=== PATIENT | female | born 2000 | race African-American/Black ===

== ENCOUNTER 2019-03-19 00:38 | Emergency (ER) | payer MEDICAID ==
--- NOTE | 2019-03-19 02:04 | ER Document Report ---
HPI - HPI Time Seen by Provider: 03/19/19 01:55 Pain Level: 3 Context: Patient is a 19-year-old female that comes to the emergency department for chief complaint of several days of pain in the right side of her chest. She states pain is occasional sharp, most noticeable when she takes a deep breath or makes a movement. She denies trauma, shortness of breath, nausea/vomiting, fever/chills, or any other complaints. She states she recently stopped vaping and reasons to quit smoking as well. She smokes occasional marijuana. She denies recreational drugs otherwise. LMP a few days ago. She denies medical history otherwise. - REPRODUCTIVE LMP: 1 week ago Reproductive: DENIES: : Past Medical History - General Information source: Patient - Social History Smoking Status: Former Smoker Chew tobacco use (# tins/day): Yes Frequency of alcohol use: None Drug Abuse: Marijuana Lives with: Family Family History: Reviewed & Not Pertinent Patient has suicidal ideation: No Patient has homicidal ideation: No Surgical Hx: Negative - Immunizations Immunizations up to date: Yes Hx Diphtheria, Pertussis, Tetanus Vaccination: Yes Vertical Provider Document - CONSTITUTIONAL General Appearance: WD/WN, No Apparent Distress - INFECTION CONTROL TRAVEL OUTSIDE OF THE [place] IN LAST 30 DAYS: No - HEENT HEENT: Atraumatic, Normal ENT Exam, Normocephalic - NECK Neck: Normal Inspection - RESPIRATORY Respiratory: Breath Sounds Normal, No Respiratory Distress, Chest Non-Tender - CARDIOVASCULAR Cardiovascular: Regular Rate, Regular Rhythm - GI/ABDOMEN Gastrointestinal: Abdomen Soft, Abdomen Non-Tender. negative: Abdomen Tender - BACK Back: Normal Inspection - MUSCULOSKELETAL/EXTREMETIES Musculoskeletal/Extremeties: MAEW, FROM, Non-Tender - NEURO Level of Consciousness: Awake, Alert, Appropriate Motor/Sensory: No Motor Deficit, No Sensory Deficit - DERM Integumentary: Warm, Dry, No Rash Course - Re-evaluation Re-evalutation: Patient complaining of sharp right-sided chest pain mainly with a pleuritic component (taking deep breaths), occasionally with movements. She is not in any distress. Clear lungs, soft abdomen, no tachycardia. No fever. No injury. Chest x-ray unremarkable. EKG actually shows multiple areas of ST elevations which could be suggestive of pericarditis. Patient has no murmur, no current complaints. Possible mild pericarditis. I discussed with Dr. Ramirez. He does not recommend laboratory work-up at this time, recommends treatment with indomethacin and close cardiology follow-up with return precautions which were discussed in detail with the patient. Patient states satisfaction agreement with plan. Stable at time of discharge. - Vital Signs Vital signs: Temp Pulse Resp BP Pulse Ox 98.0 F 85 16 110/65 98 03/19/19 00:45 03/19/19 00:45 03/19/19 00:45 03/19/19 00:45 03/19/19 00:45 Discharge - Discharge Clinical Impression: Chest pain Qualifiers: Chest pain type: unspecified Qualified Code(s): R07.9 - Chest pain, unspecified Condition: Stable Disposition: HOME, SELF-CARE Additional Instructions: Your EKG and evaluation are suggestive of pericarditis. As result the recommendation is to take the indomethacin to treat this, please call the listed cardiology referral for close follow-up and additional evaluation including possible echocardiogram. Come back if you worsen including difficulty breathing, severe worsening pain, or any other concerning or worsening symptoms. Prescriptions: Indomethacin [Indocin 50 mg Capsule] 50 mg PO TID #15 capsule Forms: Return to Work Referrals: YENNY GUERRA MD [ACTIVE STAFF] - Follow up tomorrow
--- NOTE | 2019-03-19 02:48 | RADIOLOGY REPORT (SQ) ---
CLINICAL HISTORY: chest/lung pain. quit vaping 1 wk ago COMPARISON: None. TECHNIQUE: XR CHEST 2 VIEWS 03/19/2019 12:00 AM CDT FINDINGS: Cardiac silhouette is normal in size. Lungs are clear without consolidation, atelectasis, mass or edema. There is no pleural effusion. There is no pneumothorax. There are no acute osseous findings. IMPRESSION: Clear lungs.
[2019-03-19] MEDS ORDERED: INDOMETHACIN 50 MG CAPSULE PO ONE (03:46)
[2019-03-19 04:22] VITALS: BP 126/74
--- NOTE | 2019-03-19 11:41 | EKG REPORT ---
SEVERITY:- ABNORMAL ECG - SINUS ARRHYTHMIA, RATE [id number] : Confirmed by: Eddie Ghotra 19-Mar-2019 11:41:00
== END 2019-03-19 04:19 | disposition home or self-care (01) ==
LOC: ER 00:38
DX: R07.9 Chest pain, unspecified (principal); Z87.891 Personal history of nicotine dependence
CPT/HCPCS: 93005; 99285; 71046; 93010; J3490

== ENCOUNTER 2019-05-01 12:04 | Emergency (ER) | payer SELFPAY ==
--- NOTE | 2019-05-01 12:22 | ER Document Report ---
ED Medical Screen (RME) - General Chief Complaint: Upper Abdominal Pain Stated Complaint: ABDOMINAL PAIN Time Seen by Provider: 05/01/19 12:18 Primary Care Provider: CARINA VIRAMONTES MD [Primary Care Provider] - Follow up as needed Mode of Arrival: Ambulatory Information source: Patient Notes: 19-year-old female presented to ED for complaint of right upper abdominal pain for about 20 to 30 minutes. She states she has been nausea and vomiting. She was vomiting in the emergency room. She is alert oriented respirations regular nonlabored. She states her last menstrual period was about a month ago. She states she does not have a history of kidney stones and has her gallbladder still. Patient smokes 1 black miles a day no alcohol no drugs. Denies any past medical history. I have greeted and performed a rapid initial assessment of this patient. A comprehensive ED assessment and evaluation of the patient, analysis of test results and completion of medical decision making process will be conducted by an additional ED providers. TRAVEL OUTSIDE OF THE [place] IN LAST 30 DAYS: No Past Medical History - Immunizations Immunizations up to date: Yes Hx Diphtheria, Pertussis, Tetanus Vaccination: Yes Physical Exam - Vital signs Vitals: Temp Pulse Resp BP Pulse Ox 97.4 F 79 24 H 100/71 99 05/01/19 12:04 05/01/19 12:04 05/01/19 12:04 05/01/19 12:04 05/01/19 12:04 Course - Vital Signs Vital signs: Temp Pulse Resp BP Pulse Ox 97.4 F 79 24 H 100/71 99 05/01/19 12:04 05/01/19 12:04 05/01/19 12:04 05/01/19 12:04 05/01/19 12:04 Doctor's Discharge - Discharge Referrals: CARINA VIRAMONTES MD [Primary Care Provider] - Follow up as needed
[2019-05-01 12:49] LABS: ABSOLUTE EOSINOPHILS # (AUTO) 0.2 10^3/uL (0.0-0.6); ABSOLUTE MONOCYTES (AUTO) 0.7 10^3/uL (0.1-1.4); ABSOLUTE NEUT (AUTO) 3.8 10^3/uL (1.7-8.2); BASOPHILS % (AUTO) 0.3 % (0-2); EOSINOPHILS % (AUTO) 2.7 % (0-6); HEMATOCRIT 37.3 % (36.0-47.0); HEMOGLOBIN 13.1 g/dL (12.0-15.5); LYMPHOCYTES % (AUTO) 45.9 % (13-45); MEAN CORPUSCULAR HGB CONC 35.1 g/dL (32.0-36.0); MEAN CORPUSCULAR VOLUME 88 fl (80-97); MONOCYTES % (AUTO) 8.2 % (3-13); PLATELET COUNT 300 10^3/uL (150-450); RED BLOOD COUNT 4.22 10^6/uL (3.72-5.28); RED CELL DISTRIBUTION WIDTH 12.6 % (11.5-14.0); SEGMENTED NEUTROPHILS % (AUTO) 42.9 % (42-78); TOTAL CELLS COUNTED % (AUTO) 100 %; WHITE BLOOD COUNT 8.8 10^3/uL (4.0-10.5)
[2019-05-01 13:06] LABS: ALBUMIN 4.2 g/dL (3.5-5.0); ALKALINE PHOSPHATASE 58 U/L (38-126); ANION GAP 8 (5-19); ASPARTATE AMINO TRANSFERASE 21 U/L (14-36); BILIRUBIN,DIRECT 0.1 mg/dL (0.0-0.4); BILIRUBIN,TOTAL 0.3 mg/dL (0.2-1.3); BLOOD UREA NITROGEN 9 mg/dL (7-20); CALCIUM 9.2 mg/dL (8.4-10.2); CARBON DIOXIDE 24 mmol/L (22-30); CHLORIDE 107 mmol/L (98-107); GLUCOSE 99 mg/dL (75-110); TOTAL PROTEIN 6.9 g/dL (6.3-8.2)
--- NOTE | 2019-05-01 14:13 | RADIOLOGY REPORT (SQ) ---
EXAM DESCRIPTION: U/S ABDOMEN LIMITED W/O DOP COMPLETED DATE/TIME: 05/01/2019 2:01 pm REASON FOR STUDY: Right upper quadrant with nausea and vomiting COMPARISON: None. TECHNIQUE: Dynamic and static grayscale images acquired of the abdomen and recorded on PACS. Additio dmitriy selected color Doppler and spectral images recorded. LIMITATIONS: None. FINDINGS: PANCREAS: No masses. Visualized pancreatic duct normal caliber. LIVER: No masses. Echotexture normal. LIVER VASCULATURE: Normal directional flow of the main portal vein and hepatic veins. GALLBLADDER: No stones. Normal wall thickness. No pericholecystic fluid. ULTRASOUND-DETECTED GOMEZ'S SIGN: Negative. INTRAHEPATIC DUCTS AND COMMON DUCT: CBD and intrahepatic ducts normal caliber. No filling defects. INFERIOR VENA CAVA: Not imaged. AORTA: No aneurysm. RIGHT KIDNEY: Normal size, 10.6 cm. There is an echogenic focus in upper calyx measuring 6 mm. Lik christopher nonobstructing calculus. Renal pelvis is slightly prominent but there is no true hydronephrosis. PERITONEAL AND RIGHT PLEURAL SPACE: No ascites or effusions. OTHER: No other significant findings. IMPRESSION: Right renal calculus. No other significant finding. TECHNICAL DOCUMENTATION: JOB ID: [id number] [email or web address]- All Rights Reserved Reading location - IP/workstation name: [email or web address]
[2019-05-01 14:24] LABS: AMORPHOUS SEDIMENT,URINE TRACE /HPF; APPEARANCE,URINE CLOUDY; BILIRUBIN,URINE NEGATIVE (NEGATIVE); COLOR,URINE AMBER; GLUCOSE, URINE NEGATIVE (NEGATIVE); KETONES,URINE NEGATIVE (NEGATIVE); PROTEIN,URINE NEGATIVE (NEGATIVE); URINE SPECIFIC GRAVITY 1.026; UROBILINOGEN,URINE NEGATIVE mg/dL (<2.0)
[2019-05-01] MEDS ORDERED: TAMSULOSIN HCL 0.4 MG CAP.SR.24H PO ONE (15:13)
--- NOTE | 2019-05-01 15:13 | ER Document Report ---
ED General - General Chief Complaint: Upper Abdominal Pain Stated Complaint: ABDOMINAL PAIN Time Seen by Provider: 05/01/19 12:18 Primary Care Provider: CARINA VIRAMONTES MD [Primary Care Provider] - Follow up in 1 week Mode of Arrival: Ambulatory Information source: Patient Notes: 19-year-old female presents emergency department with complaints of right-sided flank pain with nausea and vomiting. She reports she woke up with the pain. She thought she had to have a bowel movement. She denies pain with void. She reports she immediately got in the car and came to the emergency department upon arrival she started having nausea and vomiting. She denies fever but reports she felt really cold. Denies history of kidney stones. Denies trauma. TRAVEL OUTSIDE OF THE [place] IN LAST 30 DAYS: No - HPI Onset: Just prior to arrival Onset/Duration: Sudden Quality of pain: Achy Associated symptoms: Nausea Exacerbated by: Denies Relieved by: Denies Similar symptoms previously: No Recently seen / treated by doctor: No - Related Data Allergies/Adverse Reactions: No Known Allergies Allergy (Unverified 05/01/19 12:20) Past Medical History - General Information source: Patient - Social History Smoking Status: Current Every Day Smoker Cigarette use (# per day): Yes Frequency of alcohol use: None Drug Abuse: None Lives with: Family Family History: Reviewed & Not Pertinent Patient has suicidal ideation: No Patient has homicidal ideation: No - Medical History Medical History: Negative Surgical Hx: Negative - Immunizations Immunizations up to date: Yes Hx Diphtheria, Pertussis, Tetanus Vaccination: Yes Review of Systems - Review of Systems Notes: Review HPI for review of systems., All other systems negative Physical Exam - Vital signs Vitals: Temp Pulse Resp BP Pulse Ox 97.4 F 79 24 H 100/71 99 05/01/19 12:04 05/01/19 12:04 05/01/19 12:04 05/01/19 12:04 05/01/19 12:04 - Notes Notes: PHYSICAL EXAMINATION: GENERAL: Well-appearing and in no acute distress HEAD: Atraumatic, normocephalic. EYES: extraocular movements intact, sclera anicteric, conjunctiva are normal. ENT: nares patent, oropharynx clear without exudates. Moist mucous membranes. NECK: Normal range of motion, supple without lymphadenopathy LUNGS: CTAB and equal. No wheezes rales or rhonchi. HEART: Regular rate and rhythm without murmurs ABDOMEN: Soft, no tenderness. No guarding, no rebound BACK: Right flank pain EXTREMITIES: Normal range of motion, no pitting edema. No cyanosis. NEUROLOGICAL: Cranial nerves grossly intact. Normal sensory/motor exams. PSYCH: Normal mood, normal affect. SKIN: Warm, Dry, normal turgor, no rashes or lesions noted Course - Re-evaluation Re-evalutation: 05/01/19 19-year-old female presents emergency department with complaints of right flank pain. Reports started since she woke up this morning. She immediately got in the car came to the emergency department. Upon arrival she experienced nausea vomiting. Patient reports pain. She was treated with Toradol fluids and Zofr an. She reports pain was relieved after Toradol. Renal ultrasound shows right renal calculus. Labs unremarkable. Patient was treated with Flomax pain medication and pain nausea medicine. She was instructed in importance of monitoring the symptoms. She was instructed to return the emergency department for fever worsening symptoms concerns. She verbalized understanding to all instructions. Dictation of this chart was performed using voice recognition software; therefore, there may be some unintended grammatical errors. Abdomen Ultrasound 05/01/19 12:19 IMPRESSION: Right renal calculus. No other significant finding. 05/01/19 12:30 05/01/19 12:30 MCV 88 fl (80-97) 05/01/19 12:30 MCH 31.0 pg (27.0-33.4) 05/01/19 12:30 MCHC 35.1 g/dL (32.0-36.0) 05/01/19 12:30 RDW 12.6 % (11.5-14.0) 05/01/19 12:30 Seg Neutrophils % 42.9 % (42-78) 05/01/19 12:30 Chloride 107 mmol/L (98-107) 05/01/19 12:30 Carbon Dioxide 24 mmol/L (22-30) 05/01/19 12:30 Anion Gap 8 (5-19) 05/01/19 12:30 Est GFR ( Amer) > 60 (>60) 05/01/19 12:30 Glucose 99 mg/dL (75-110) 05/01/19 12:30 Calcium 9.2 mg/dL (8.4-10.2) 05/01/19 12:30 Total Bilirubin 0.3 mg/dL (0.2-1.3) 05/01/19 12:30 AST 21 U/L (14-36) 05/01/19 12:30 Alkaline Phosphatase 58 U/L (38-126) 05/01/19 12:30 Total Protein 6.9 g/dL (6.3-8.2) 05/01/19 12:30 Albumin 4.2 g/dL (3.5-5.0) 05/01/19 12:30 Lipase 70.0 U/L (23-300) 05/01/19 12:30 Urine Color GEOVANNY 05/01/19 14:04 Urine Appearance CLOUDY 05/01/19 14:04 Urine pH 8.0 (5.0-9.0) 05/01/19 14:04 Ur Specific [place] 1.026 05/01/19 14:04 Urine Protein NEGATIVE mg/dL (NEGATIVE) 05/01/19 14:04 Urine Glucose (UA) NEGATIVE mg/dL (NEGATIVE) 05/01/19 14:04 Urine Ketones NEGATIVE mg/dL (NEGATIVE) 05/01/19 14:04 Urine Blood NEGATIVE (NEGATIVE) 05/01/19 14:04 Urine RBC (Auto) 8 /HPF 05/01/19 14:04 - Vital Signs Vital signs: Temp Pulse Resp BP Pulse Ox 98.5 F 91 18 123/69 100 05/01/19 16:44 05/01/19 16:44 05/01/19 16:44 05/01/19 16:44 05/01/19 16:44 - Laboratory Result Diagrams: 05/01/19 12:30 05/01/19 12:30 Laboratory results interpreted by me: 05/01/19 12:30 Lymph % (Auto) 45.9 H - Diagnostic Test Radiology reviewed: Image reviewed, Reports reviewed Discharge - Discharge Clinical Impression: Kidney stone Nausea & vomiting Qualifiers: Vomiting type: unspecified Vomiting Intractability: non-intractable Qualified Code(s): R11.2 - Nausea with vomiting, unspecified Condition: Stable Disposition: HOME, SELF-CARE Instructions: Antinausea Medication ([facility]), Flomax ([facility]), Kidney Stone ([facility]), Oral Narcotic Medication ([facility]), Toradol Injection ([facility]), Vomiting ([facility]) Additional Instructions: *You have been evaluated for nausea and vomiting, kidney stone *Take medication as prescribed *drink lots of water *Follow up with your primary care provider within one week *Return to ED for worsening condition, changes, needs, fever, increased pain *Return to ED if not better in 24 hours Prescriptions: Tamsulosin HCl [Flomax 0.4 mg Cap.sr] 0.4 mg PO DAILY #7 cap.sr.24h Hydrocodone/Acetaminophen [Lovely 5-325 mg Tablet] 1 tab PO QID #10 tablet Ondansetron [Zofran Odt 4 mg Tablet] 1 - 2 tab PO Q4H #10 tab.rapdis Referrals: CARINA VIRAMONTES MD [Primary Care Provider] - Follow up in 1 week
[2019-05-01] MEDS ORDERED: KETOROLAC TROMETHAMINE 60 MG/2 ML SDV IM ONE (15:16)
[2019-05-01] MEDS ORDERED: ONDANSETRON 4 MG TAB.RAPDIS PO ONE (15:16)
[2019-05-01 16:44] VITALS: BP 123/69
== END 2019-05-01 16:44 | disposition home or self-care (01) ==
LOC: ER 12:04
DX: N20.0 Calculus of kidney (principal); R11.2 Nausea with vomiting, unspecified; R10.9 Unspecified abdominal pain; F17.210 Nicotine dependence, cigarettes, uncomplicated
CPT/HCPCS: 99284; 96372; 36415; 87086; 84702; 83690; 85025; 80053; 81001; 76705; J1885; S0119

== ENCOUNTER 2019-12-05 18:00 | Emergency (ER) | payer OTHER, MEDICAID ==
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
[2019-12-05 19:03] VITALS: BP 115/57
[2019-12-05] MEDS ORDERED: IBUPROFEN 800 MG TABLET PO ONE (19:03)
== END 2019-12-05 19:14 | disposition home or self-care (01) ==
LOC: ER 18:00
DX: S16.1XXA Strain of muscle, fascia and tendon at neck level, initial encounter (principal); S00.83XA Contusion of other part of head, initial encounter; S40.812A Abrasion of left upper arm, initial encounter; S20.312A Abrasion of left front wall of thorax, initial encounter; M54.2 Cervicalgia; R51 Headache; H92.02 Otalgia, left ear; M79.602 Pain in left arm; F17.290 Nicotine dependence, other tobacco product, uncomplicated; V87.7XXA Person injured in collision between other specified motor vehicles (traffic), initial encounter
CPT/HCPCS: 99283; 99406

== ENCOUNTER 2020-05-20 11:13 | Emergency (ER) | payer MEDICAID, OTHER ==
[2020-05-20] MEDS ORDERED: KETOROLAC TROMETHAMINE INJ/PF 30 MG/1 ML SDV IV ONE (11:23)
[2020-05-20] MEDS ORDERED: ONDANSETRON HCL INJ/PF 4 MG/2 ML SDV IV ONE (11:23)
--- NOTE | 2020-05-20 11:24 | ER Document Report ---
ED Medical Screen (RME) - General Stated Complaint: LOW BACK PAIN/NAUSEA Time Seen by Provider: 05/20/20 11:16 Primary Care Provider: CARINA VIRAMONTES MD [Primary Care Provider] - Follow up as needed Information source: Patient Notes: Patient presents complaining of left flank pain with lower abdominal tenderness. Patient is concerned about kidney stone. Patient reports nausea vomiting x2 episodes today. Patient states that she may have a UTI, as she just feels as though she does. Patient denies any dysuria, frequency or hematuria. Patient denies any malodorous urine. Patient with a history of liposuction and [place] [employer] butt lift last month. I have greeted and performed a rapid initial assessment of this patient. A comprehensive ED assessment and evaluation of the patient, analysis of test results and completion of the medical decision making process will be conducted by additional ED providers. TRAVEL OUTSIDE OF THE [place] IN LAST 30 DAYS: No - Related Data Allergies/Adverse Reactions: No Known Allergies Allergy (Verified 05/20/20 11:16) Past Medical History Renal/ Medical History: Reports: Hx Kidney Stones - Immunizations Immunizations up to date: Yes Hx Diphtheria, Pertussis, Tetanus Vaccination: Yes Physical Exam - Vital signs Vitals: Temp Pulse Resp BP Pulse Ox 97.6 F 65 18 117/59 L 100 05/20/20 11:19 05/20/20 11:19 05/20/20 11:19 05/20/20 11:19 05/20/20 11:19 - Back Back: CVA tenderness - Left Course - Vital Signs Vital signs: Temp Pulse Resp BP Pulse Ox 97.6 F 65 18 117/59 L 100 05/20/20 11:19 05/20/20 11:19 05/20/20 11:19 05/20/20 11:19 05/20/20 11:19 Doctor's Discharge - Discharge Referrals: CARINA VIRAMONTES MD [Primary Care Provider] - Follow up as needed
[2020-05-20 13:20] LABS: ABSOLUTE LYMPHOCYTES (AUTO) 0.7 10^3/uL (0.5-4.7); ABSOLUTE MONOCYTES (AUTO) 0.6 10^3/uL (0.1-1.4); BASOPHILS % (AUTO) 0.1 % (0-2); EOSINOPHILS % (AUTO) 0.1 % (0-6); HEMATOCRIT 39.1 % (36.0-47.0); HEMOGLOBIN 13.1 g/dL (12.0-15.5); LYMPHOCYTES % (AUTO) 6.8 % (13-45); MEAN CORPUSCULAR HEMOGLOBIN 29.8 pg (27.0-33.4); MEAN CORPUSCULAR HGB CONC 33.5 g/dL (32.0-36.0); MEAN CORPUSCULAR VOLUME 89 fl (80-97); MONOCYTES % (AUTO) 5.9 % (3-13); PLATELET COUNT 262 10^3/uL (150-450); SEGMENTED NEUTROPHILS % (AUTO) 87.1 % (42-78); TOTAL CELLS COUNTED % (AUTO) 100 %; WHITE BLOOD COUNT 10.4 10^3/uL (4.0-10.5)
[2020-05-20 13:46] LABS: ALBUMIN 4.1 g/dL (3.5-5.0); ALKALINE PHOSPHATASE 64 U/L (38-126); ANION GAP 6 (5-19); ASPARTATE AMINO TRANSFERASE 24 U/L (14-36); BILIRUBIN,DIRECT 0.1 mg/dL (0.0-0.4); BILIRUBIN,TOTAL 0.5 mg/dL (0.2-1.3); BLOOD UREA NITROGEN 6 mg/dL (7-20); CALCIUM 9.5 mg/dL (8.4-10.2); CARBON DIOXIDE 26 mmol/L (22-30); CHLORIDE 106 mmol/L (98-107); GLUCOSE 119 mg/dL (75-110); TOTAL PROTEIN 6.6 g/dL (6.3-8.2)
--- NOTE | 2020-05-20 13:47 | ER Document Report ---
ED GI/ - General Chief Complaint: Flank Pain Stated Complaint: LOW BACK PAIN/NAUSEA Time Seen by Provider: 05/20/20 11:16 Primary Care Provider: KI DEE MD [NO LOCAL MD] - Follow up as needed CARINA VIRAMONTES MD [ACTIVE STAFF] - Follow up as needed TRAVEL OUTSIDE OF THE [place] IN LAST 30 DAYS: No - HPI Notes: 05/20/20 13:42 Patient is a 20-year-old female who presents with left flank pain that started this morning. She states she has been nauseous and vomiting. It feels sharp. She has had kidney stones in the past and this feels similar. She has never had to have a stent. She denies any dysuria. No fevers or chills. Patient states she had surgery about 1 month ago for liposuction and a [place] butt lift. - Related Data Allergies/Adverse Reactions: No Known Allergies Allergy (Verified 05/20/20 11:16) Past Medical History - General Information source: Patient - Social History Smoking Status: Current Every Day Smoker Chew tobacco use (# tins/day): No Frequency of alcohol use: Social Drug Abuse: Marijuana Family History: Reviewed & Not Pertinent Renal/ Medical History: Reports: Hx Kidney Stones - Immunizations Immunizations up to date: Yes Hx Diphtheria, Pertussis, Tetanus Vaccination: Yes Review of Systems - Review of Systems Notes: CONSTITUTIONAL: No fever, fatigue or weight loss. SKIN: No rash. HENT: No congestion, ear pain, or sore throat. CARDIOVASCULAR: No chest pain or edema. RESPIRATORY: No cough, shortness of breath, congestion, or wheezing. GASTROINTESTINAL: Positive for nausea, vomiting, left flank pain and left abdominal pain. GENITOURINARY: No dysuria. NEUROLOGIC: No seizures. No headache, focal weakness or sensory changes. HEMATOLOGIC: No unusual bruising or bleeding. PSYCHIATRIC: No depression or anxiety. Physical Exam - Vital signs Vitals: Temp Pulse Resp BP Pulse Ox 97.6 F 65 18 117/59 L 100 05/20/20 11:19 05/20/20 11:19 05/20/20 11:19 05/20/20 11:19 05/20/20 11:19 - General In distress: Mild Notes: VITAL SIGNS: Within normal limits. GENERAL: No acute distress, non-toxic appearance. HEAD: Normal with no signs of head trauma. EYES: EOMI, conjunctiva normal, no discharge. EARS: Hearing grossly intact. NECK: Normal range of motion, no tenderness, supple, no lymphadenopathy, No adenopathy, no JVD. CHEST: Clear breath sounds bilaterally. No wheezes, rales, or rhonchi. CARDIAC: Regular rate and rhythm. S1 and S2, without murmurs, gallops, or rubs. VASCULAR: No Edema. ABDOMEN: Normal and soft with no tenderness. Left flank discomfort to palpation. GENITOURINARY: Normal, No tenderness MUSCULOSKELETAL: Good range of motion of all major joints. Extremities without clubbing, cyanosis or edema. NEUROLOGICAL: Alert and oriented x 3. No focal sensory or strength deficits. Speech normal. Follows commands appropriately. PSYCHIATRIC: Normal Affect, judgement and mood. SKIN: Normal appearance with no rashes or lesions. Course - Re-evaluation Re-evalutation: 05/20/20 13:46 Patient states this feels like her normal kidney stone. She will be given Toradol and Zofran. I will obtain a CT scan. CT scan is consistent with a kidn ey stone with mild hydronephrosis. There was an incidental finding of possible panniculitis with fat necrosis. I believe this is from her recent liposuction. She has no skin changes on her abdomen. Patient's pain is controlled. I discussed all results with the patient. I did consult with Dr. Dee, urology, who agrees with the plan for outpatient follow-up. Patient does have some leukocytes in her urine, I will start her on Keflex. She was given strict return precautions including fever, worsening pain, any other concerning symptoms. She is from out of town and lives in [place]. She is here visiting family for the holidays. She was told to follow-up with her PCP and urologist at home. She is very agreeable to the plan. 05/20/20 19:05 - Vital Signs Vital signs: Temp Pulse Resp BP Pulse Ox 97.6 F 87 14 132/84 H 100 05/20/20 17:44 05/20/20 17:44 05/20/20 17:44 05/20/20 17:44 05/20/20 17:44 - Laboratory Result Diagrams: 05/20/20 13:00 05/20/20 13:00 Laboratory results interpreted by me: 05/20/20 05/20/20 05/20/20 13:00 13:00 13:50 Lymph % (Auto) 6.8 L Absolute Neuts (auto) 9.0 H Seg Neutrophils % 87.1 H BUN 6 L Glucose 119 H Urine Protein 30 H Urine Ketones 20 H Urine Blood MODERATE H Ur Leukocyte Esterase TRACE H - Diagnostic Test Radiology reviewed: Image reviewed, Reports reviewed Discharge - Discharge Clinical Impression: Left ureteral calculus, Hydronephrosis, left Condition: Stable Disposition: HOME, SELF-CARE Instructions: Kidney Stone (OM) Additional Instructions: You have a kidney stone. You may take ibuprofen as directed. You will be provided a short course of hydrocodone for severe pain if needed. Please return immediately to the ER if you have any fevers, chills, worsening symptoms. Please follow up with your family doctor. Prescriptions: Tamsulosin HCl [Flomax] 0.4 mg PO DAILY PRN 4 Days #4 cap.er.24h PRN Reason: Cephalexin Monohydrate [Keflex 500 mg Capsule] 500 mg PO BID 7 Days #14 capsule Polyethylene Glycol 3350 [Miralax Powder 17 gm/Packet] 1 packet PO DAILY 4 Days #1 pkg Ondansetron [Zofran Odt 4 mg Tablet] 4 mg PO Q6H PRN 7 Days #10 tab.rapdis PRN Reason: Referrals: CARINA VIRAMONTES MD [ACTIVE STAFF] - Follow up as needed KI DEE MD [NO LOCAL MD] - Follow up as needed
--- NOTE | 2020-05-20 14:31 | RADIOLOGY REPORT (SQ) ---
EXAM DESCRIPTION: CT ABD/PELVIS NO ORAL OR IV IMAGES COMPLETED DATE/TIME: 05/20/2020 1:05 pm REASON FOR STUDY: left flank pain, hx of kidney stones. COMPARISON: None. TECHNIQUE: CT scan of the abdomen and pelvis performed without intravenous or oral contrast. Images reviewed with lung, soft tissue, and bone windows. Reconstructed coronal and sagittal MPR images revi ewed. All images stored on PACS. All CT scanners at this facility use dose modulation, iterative reconstruction, and/or weight based d osing when appropriate to reduce radiation dose to as low as reasonably achievable (ALARA). [facility]: Dose Right [facility]: CareDose [facility]: Dose Right [facility]: Teradose 4D [facility]: Smart 640 Labs RADIATION DOSE: CT Rad equipment meets quality standard of care and radiation dose reduction techniq ues were employed. CTDIvol: 8.3 mGy. DLP: 445 mGy-cm.mGy. LIMITATIONS: None. FINDINGS: LOWER CHEST: No significant findings. No nodules or infiltrates. NON-CONTRASTED LIVER, SPLEEN, ADRENALS: Evaluation limited by lack of IV contrast. No identified sign ificant masses. PANCREAS: No masses. No peripancreatic inflammatory changes. GALLBLADDER: No identified stones by CT criteria. No inflammatory changes to suggest cholecystitis. RIGHT KIDNEY AND URETER: No suspicious masses. Assessment limited by lack of IV contrast. No signif icant calcifications. No hydronephrosis or hydroureter. LEFT KIDNEY AND URETER: No suspicious masses. Assessment limited by lack of IV contrast. There is m ild left hydronephrosis and hydroureter with an obstructing distal left ureteral calculus at the uret erovesical junction measuring about 2 mm. No other obstructing or nonobstructing renal or ureteral c alculi. No perinephric fluid. AORTA AND RETROPERITONEUM: No aneurysm. No retroperitoneal masses or adenopathy. BOWEL AND PERITONEAL CAVITY: No obvious masses or inflammatory changes. No free fluid. APPENDIX: Normal. PELVIS, BLADDER, AND ABDOMINAL WALL:The uterus and ovaries have normal size. No adnexal mass. Urina ry bladder is relatively decompressed. Small amount of free fluid in the pelvic cul-de-sac. No pelv ic adenopathy. The anterior abdominal wall demonstrates diffuse skin thickening and inflammatory kacie nge of the subcutaneous fat. No subcutaneous edema. The subcutaneous fat overlying the pelvis demon strates multifocal ovoid intermediate density structures suggestive of diffuse multifocal fat necrosi s. BONES: No significant findings. OTHER: No other significant finding. IMPRESSION: 1. Obstructing 2 mm distal left ureteral calculus with mild left hydronephrosis. Small amount of kun e fluid in the pelvis is likely reactive. 2. Diffuse subcutaneous panniculitis. This can be seen in association with vasculitis, scleroderma, and other dermatopathologies. Clinical correlation for patient's history recommended. Consider derm atology consultation as clinically indicated. COMMENT: Quality ID # [id number]: Final reports with documentation of one or more dose reduction techniques (e.g., Automated exposure control, adjustment of the mA and/or kV according to patient size, use of iterative reconstruction technique) TECHNICAL DOCUMENTATION: JOB ID: [id number] [employer]- All Rights Reserved Reading location - IP/workstation name: [email or web address]
[2020-05-20 14:38] LABS: AMORPHOUS SEDIMENT,URINE TRACE /HPF; APPEARANCE,URINE CLOUDY; BILIRUBIN,URINE NEGATIVE (NEGATIVE); COLOR,URINE YELLOW; GLUCOSE, URINE NEGATIVE (NEGATIVE); KETONES,URINE 20 mg/dL (NEGATIVE); LEUKOCYTE ESTERASE,URINE TRACE (NEGATIVE); NITRITE,URINE NEGATIVE (NEGATIVE); PROTEIN,URINE 30 mg/dL (NEGATIVE); URINE SPECIFIC GRAVITY 1.023; UROBILINOGEN,URINE NEGATIVE mg/dL (<2.0)
[2020-05-20] MEDS ORDERED: HYDROCODONE/ACETAMINOPHEN 5-325 MG TABLET PO ONE (14:40)
[2020-05-20] MEDS ORDERED: NORMAL SALINE 500 ML IV ONE (14:42)
[2020-05-20] MEDS ORDERED: CEPHALEXIN 500 MG CAPSULE PO ONE (16:52)
[2020-05-20] MEDS ORDERED: HYDROCODONE/ACETAMINOPHEN 5-325 MG (6 TAB/ER DISP) PO PRN (17:19)
[2020-05-20 17:46] VITALS: BP 132/84
== END 2020-05-20 17:44 | disposition home or self-care (01) ==
LOC: ER 11:13
DX: N13.2 Hydronephrosis with renal and ureteral calculous obstruction (principal); R10.9 Unspecified abdominal pain; R11.2 Nausea with vomiting, unspecified; F17.200 Nicotine dependence, unspecified, uncomplicated; F12.10 Cannabis abuse, uncomplicated; Z98.890 Other specified postprocedural states
CPT/HCPCS: 99285; 96361; 96374; 96375; 36415; 83690; 84703; 85025; 80053; 81001; 74176; J1885; J2405; J7040